=== PATIENT | male | born 2000 | race Two or more races ===

== ENCOUNTER 2022-09-13 14:35 | Emergency (ER) | payer OTHER ==
[~2022-09-13] VITALS: Ht 172.7 cm; Wt 77.1 kg
== END 2022-09-13 19:53 | disposition home or self-care (01) ==
LOC: ER 14:35 → EMR PED 14:42 → ER 14:42 → EMR PED 19:53
DX: S01.82XA Laceration with foreign body of other part of head, initial encounter (principal); W45.8XXA Other foreign body or object entering through skin, initial encounter; Y93.89 Activity, other specified; Y92.89 Other specified places as the place of occurrence of the external cause

== ENCOUNTER 2022-09-19 09:44 | Emergency (ER) | payer OTHER ==
[~2022-09-19] VITALS: Ht 172.7 cm; Wt 77.1 kg
== END 2022-09-19 10:34 | disposition home or self-care (01) ==
LOC: EMR PED 09:44
DX: Z48.02 Encounter for removal of sutures (principal)